=== PATIENT | male | born 1970 | race Caucasian/White ===

== ENCOUNTER 2025-04-20 06:36 | Day surgery (SDC) | payer OTHER ==
[2025-04-06 11:37] VITALS: BMI 35.0
[2025-04-20 11:03] LABS: ABSOLUTE IMMATURE GRANULOCYTES 0.01 x10^3/uL (0.0-0.031); MEAN CELL VOLUME 87.1 fl (79.0-92.2)
[2025-04-20 11:05] LABS: BASOPHILS # 0.02 x10^3/uL (0.01-0.08); EOSINOPHILS # 0.33 x10^3/uL (0.04-0.54); HEMATOCRIT 43.4 % (40.1-51.0); HEMOGLOBIN 14.4 g/dL (13.7-17.5); MCHC 33.2 g/dl (32.3-36.5); MONOCYTE % 7.3 % (5.3-12.2); PLATELET COUNT 295 x10^3/uL (163-337); RDW 13.1 % (12.2-16.1)
[2025-04-20] MEDS ORDERED: BUPIVACAINE HCL/PF 0.25% (2.5MG/ML) 10 ML VIAL ONE (15:35)
[2025-04-20] MEDS ORDERED: cefOXitin SODIUM 2 GM VIAL (RESTRICTED TO ID) IVPB ONE (15:35)
[2025-04-20] MEDS ORDERED: ONDANSETRON 4 MG/2 ML VIAL ONE (15:59)
[2025-04-20] MEDS ORDERED: DEXAMETHASONE SOD PHOSPHATE 4 MG/1 ML VIAL ONE (15:59)
[2025-04-20] MEDS ORDERED: PROPOFOL 20 ML ONE ×2 (15:59→18:23)
[2025-04-20] MEDS ORDERED: MIDAZOLAM HCL 2 MG/2 ML SINGLE DOSE VIAL ONE (16:02)
[2025-04-20] MEDS ORDERED: ROCURONIUM BROMIDE 50 MG/5 ML SYRINGE ONE (17:05)
[2025-04-20] MEDS: ceFAZolin SODIUM 1 GM VIAL IVPB ONE (17:15)
[2025-04-20] MEDS: BUPIVACAINE HCL/PF 0.25% (2.5MG/ML) 10 ML VIAL IJ ONE ×2 (17:17)
[2025-04-20] MEDS ORDERED: SUGAMMADEX SODIUM 200 MG/2 ML VIAL ONE (19:48)
[2025-04-20] MEDS ORDERED: ONDANSETRON 4 MG/2 ML VIAL IVPUSH PRN (20:16)
[2025-04-20] MEDS: LACTATED RINGERS SOLUTION 1,000 ML IV SCH (21:01)
[2025-04-20] MEDS: ACETAMINOPHEN 1000 MG/100 ML BAG IVPB SCH (21:02)
[2025-04-20 22:24] VITALS: RESP 18
[2025-04-20] MEDS: oxyCODONE HCL 5 MG TABLET PO PRN (22:51)
[2025-04-20] MEDS: BUDESONIDE/FORMOTEROL FUMARATE 80-4.5 MCG (10.3 GM INHALER) IH SCH (22:52)
[2025-04-21] MEDS: ACETAMINOPHEN 325 MG TABLET (FP) PO SCH (03:09)
[2025-04-21] MEDS ORDERED: ALBUTEROL SO4 HFA INHALER IH PRN (03:20)
[2025-04-21] MEDS ORDERED: ACETAMINOPHEN 325 MG TABLET (FP) PO PRN (06:11)
[2025-04-21] MEDS: LOSARTAN POTASSIUM 50 MG TABLET PO SCH (09:38)
[2025-04-21 10:17] VITALS: BP 113/69; PULSE 99; TEMP 98.1
[2025-04-21] MEDS ORDERED: oxyCODONE HCL 5 MG TABLET PO PRN (20:16)
== END 2025-04-21 11:07 | disposition home or self-care (01) ==
LOC: JASUSAT 06:36 → JASU-SURG 06:36 → SUATTDRO 06:36 → J8W 22:09 → JASUSAT 04-21 11:07
PROVIDERS: ATTEND Nurse Practitioner Acute Care
PROC: 0WUF4JZ Supplement Abdominal Wall with Synthetic Substitute, Percutaneous Endoscopic Approach (ICD-10-PCS; 2025-04-20)
PROC: 8E0W4CZ Robotic Assisted Procedure of Trunk Region, Percutaneous Endoscopic Approach (ICD-10-PCS; 2025-04-20)
PROC: 0YU50JZ Supplement Right Inguinal Region with Synthetic Substitute, Open Approach (ICD-10-PCS; principal; 2025-04-20 12:00)
PROC: 8E0W0CZ Robotic Assisted Procedure of Trunk Region, Open Approach (ICD-10-PCS; 2025-04-20 12:00)
DX: K42.9 Umbilical hernia without obstruction or gangrene (principal); K40.90 Unilateral inguinal hernia, without obstruction or gangrene, not specified as recurrent
CPT/HCPCS: 49505; 49591; S2900; 36415; 85025; 86850; 86900; 86901; 94760; C1781